=== PATIENT | male | born 1955 | race Caucasian/White ===

== ENCOUNTER → 2019-08-08 | Outpatient (CLI) | payer OTHER | END | disposition home or self-care (01) | LOC: LABWHC1 10:41 | PROVIDERS: ATTEND Radiology Radiation Oncology | DX: C61 Malignant neoplasm of prostate (principal); Z87.891 Personal history of nicotine dependence | CPT/HCPCS: 36415; 84153 ==

== ENCOUNTER → 2021-11-07 | Outpatient (CLI) | payer MEDICARE ==
[2021-11-07 14:34] LABS: Basophils # (A) 0.05 X 10*3/uL (0.00-0.10); Basophils % (A) 0.8 %; Eosinophils # (A) 0.37 X 10*3/uL (0.04-0.35); Eosinophils % (A) 6.3 %; HCT 48.9 % (39.6-50.0); Immature Grans, Automated 0.7 %; Lymphocytes # (A) 1.42 X 10*3/uL (0.90-5.00); MCHC 30.7 g/dL (32.0-37.0); MCV 94.6 fL (80.0-97.0); Mean Platelet Volume 9.3 fL (9.5-12.2); Monocytes # (A) 0.94 X 10*3/uL (0.20-1.00); Monocytes % (A) 15.9 %; NRBC Per 100 WBC 0 /100 WBCS (0.0-0.0); Neutrophils # (A) 3.09 X 10*3/uL (1.80-7.70); Neutrophils % (A) 52.3 %; Platelet Count 241 X 10*3/uL (140-440); RBC 5.17 X 10*6/uL (4.40-5.60); RDW 12.8 % (11.5-14.5); WBC 5.91 X 10*3/uL (4.50-10.00)
[2021-11-07 14:45] LABS: African American GFR (CKD) 75.4 (60.0-200.0); Anion Gap 11.6 mmol/L (10.00-18.00); BUN/Creat Ratio 18.03 Ratio (12.00-20.00); Blood Urea Nitrogen 21.1 mg/dL (9.0-27.0); Calcium 10.2 mg/dL (8.7-10.3); Carbon Dioxide 26.7 mmol/L (20.0-27.5)
== END | disposition home or self-care (01) ==
LOC: LABPAT 09:18
PROVIDERS: ATTEND Urology
DX: Z01.812 Encounter for preprocedural laboratory examination (principal); C61 Malignant neoplasm of prostate
CPT/HCPCS: 36415; 80048; 85025

== ENCOUNTER 2021-11-14 08:06 | Day surgery (SDC) | payer MEDICARE ==
--- NOTE | 2021-11-08 14:48 | P.HPIHPCON ---
History of Present Illness H&P Date: 11/08/21 Chief Complaint: Prostate cancer This is a 66-year-old male with history of Sparkman 7(3+4) prostate cancer, he elected to proceed with radiation. Option of SpaceOR placement was discussed with him. Discussed with him the rationale of doing a SpaceOR, and the risk of benefit of doing the procedure, risk of bleeding infection rectal perforation were discussed. He understood all the risk and agreed to proceed prostate size 48.4 grams Consent for Procedure: I have explained the operation/procedure to the patient, including the risks, benefits, side effects, alternative therapies (including not receiving the proposed treatment or service), the likelihood of the patient achieving his/her goals, and potential recuperation problems for the procedure/sedation/analgesia, as well as any blood products, if indicated. I also explained to the patient the risks, benefits and side effects of the alternatives, as well as the risks related to not receiving the proposed procedure, care, treatment, or services. Surgical - Exam - General no distress, no pain - Respiratory normal expansion, normal respiratory effort - Abdomen Abdomen: soft, non tender Assessment and Plan Assessment: OR for SpaceOR placement
[2021-11-11 14:12] VITALS: BMI 26.4
[~2021-11-14 08:06] MED LIST: CLINDAMYCIN 600 MG in DEXTROSE 5% IN WATER 50 ML IVPB PRN; LIDOCAINE 1% (10MG/ML) FOR IV START INTRADERMA PRN; ONDANSETRON 4 MG/2 ML VIAL IVP PRN; fentaNYL (PF) 50 MCG/ML 2 ML AMP IV PRN
[2021-11-14 08:40] VITALS: TEMP 97.1
[2021-11-14] MEDS: LACTATED RINGERS 1,000 ML IV SCH ×2 (08:45→08:50)
[2021-11-14] MEDS ORDERED: DEXAMETHASONE SOD PHOSPHATE 4 MG/ML 1 ML VIAL IV ONE (08:55)
[2021-11-14] MEDS ORDERED: PROPOFOL 10 MG/ML 20 ML VIAL IV ONE (09:05)
[2021-11-14] MEDS ORDERED: MIDAZOLAM 2 MG/2 ML VIAL ONE (09:05)
[2021-11-14] MEDS ORDERED: KETAMINE 10 MG/ML 20 ML VIAL ONE (09:05)
[2021-11-14] MEDS: GENTAMICIN 120 MG in SODIUM CHLORIDE 0.9% 100 ML IVPB PRN ×2 (09:11→09:20)
[2021-11-14] MEDS ORDERED: LIDOCAINE 2% INJ 20 MG/ML SQ ONE ×2 (09:18→09:29)
--- NOTE | 2021-11-14 09:39 | P.OP ---
Date of Procedure: 11/14/21 Preoperative Diagnosis: Prostate cancer Postoperative Diagnosis: Same Procedure(s) Performed: Transrectal ultrasound, and SpaceOR placement Implants: SpaceOR gel placement Anesthesia: RIOSA Surgeon: Kyle Islas Estimated Blood Loss (ml): 1 Pathology: none sent Condition: stable Disposition: PACU Indications for Procedure: This is a 66-year-old male with history of Aure 7(3+4) prostate cancer, he elected to proceed with radiation. Option of SpaceOR placement was discussed with him. Discussed with him the rationale of doing a SpaceOR, and the risk of benefit of doing the procedure, risk of bleeding infection rectal perforation were discussed. He understood all the risk and agreed to proceed Description of Procedure: he patient was taken to the operating room and placed in the dorsolithotomy position, with his legs supported in Fred stirrups. The external genitalia was prepped and draped sterilely. The transrectal ultrasound probe was placed intrarectally. The prostate was imaged. The probe was then placed within the stabilizing stand. A spinal needle was advanced under ultrasonic guidance to the level of the urogenital diaphragm, and lidocaine was used to infiltrate the tissues as the needle was withdrawn. . Next, the SpaceOAR needle was passed through the midline of the perineum, 1-2 cm anterior to the anal opening. The needle was slowly advanced under ultrasonic guidance until the needle tip was located within the fat plane between the prostate and rectum, at the level of the mid prostate gland. The needle was confirmed to be midline on the axial imaging. A small amount of normal saline was injected for hydrodissection. Next, the SpaceOAR components were mixed and loaded into the Y connector per protocol. The Y connector was then connected to the needle, and the components were injected slowly over a course of approximately 12 seconds. A total of 10 ml was injected. Significant distance was created between the prostate and rectum, as desired. It should be noted t hat at no point was there any concern of rectal perforation. The needle was withdrawn, as well as the transrectal ultrasound probe, and the procedure was terminated. The patient tolerated the procedure well and was taken to the recovery room in stable condition
[2021-11-14 10:03] VITALS: BP 120/76; PULSE 72; RESP 16
== END 2021-11-14 10:36 | disposition home or self-care (01) ==
LOC: OR 08:06
PROVIDERS: ATTEND Urology
DX: C61 Malignant neoplasm of prostate (principal); J44.9 Chronic obstructive pulmonary disease, unspecified; Z87.891 Personal history of nicotine dependence; Z88.0 Allergy status to penicillin; Z87.442 Personal history of urinary calculi; Z79.51 Long term (current) use of inhaled steroids; Z80.3 Family history of malignant neoplasm of breast; Z82.49 Family history of ischemic heart disease and other diseases of the circulatory system
CPT/HCPCS: 55874; C1889; J2001; J2250; J1100; J2405; J1580; J2704

== ENCOUNTER → 2021-11-18 | Outpatient (CLI) | payer MEDICARE | END | disposition home or self-care (01) | LOC: LABWHC1 09:44 | PROVIDERS: ATTEND Radiology Radiation Oncology | DX: C61 Malignant neoplasm of prostate (principal); R97.20 Elevated prostate specific antigen [PSA]; Z87.891 Personal history of nicotine dependence | CPT/HCPCS: 36415; 84153 ==

== ENCOUNTER → 2022-02-28 | Outpatient (CLI) | payer MEDICARE, OTHER ==
--- NOTE | 2022-02-28 09:27 | CT ---
EXAMINATION TYPE: CT chest wo con DATE OF EXAM: 02/28/2022 COMPARISON: None HISTORY: 67-year-old male S20.211A, Contusion front wall of thorax TECHNIQUE: Contiguous axial scanning of the chest without IV contrast. Coronal and sagittal reconstru ctions performed. CT DLP: 319.50 mGycm Automated exposure control for dose reduction was used. FINDINGS: Heart normal size without pericardial effusion. Ascending aorta is ectatic at 3.8 cm. Scattered mild atherosclerotic aortic calcifications are presen t. Conventional arch vessel branching anatomy. Prominent but nonenlarged 8 mm short axis AP window lymph node. No thoracic lymphadenopathy by CT siz e criteria. Large caliber to the main right and left pulmonary arteries measuring up to 3.2 cm suggesting underly ing pulmonary hypertension. Lungs show diffuse fibrotic changes especially in the upper to mid lungs with a reticular opacity, ar eas of architectural distortion, bronchiolectasis, subpleural microcystic change, and groundglass are as. Some groundglass and microcystic change is present in the lower lungs as well. Scattered focal areas of density suggesting is severe left lower lobe subpleural axial image 35 measu ring 1 cm can be reassessed at follow-up to exclude underlying nodules. 1.3 cm subpleural nodularity posterior left midlung, axial image 20. There is concomitant emphysematous change with a 6.9 cm bulla posterior left upper lung. There appears to be severe right-sided hydronephrosis and the partially visualized upper abdomen. Fur ther clinical correlation is recommended. Bones: [facility] within the lower thoracic spine. IMPRESSION: 1. COMBINATION OF MODERATE TO HEAVY FIBROSIS AND CONCOMITANT COPD. PULMONARY ARTERIAL HYPERTENSION. 2. THE FIBROTIC CHANGES ARE CHARACTERIZED BY MICROCYSTIC CHANGE, INTERSTITIAL FIBROSIS, BRONCHIOLECTA SIS, AND AREAS OF GROUNDGLASS WITH SOME CHANGES IN THE LOWER LUNGS BUT AN UPPER TO MID LUNG PREDOMINA NCE. CONSIDER CHRONIC HYPERSENSITIVITY PNEUMONITIS, SARCOIDOSIS, AND FIBROTIC NSIP. PULMONARY MEDICIN E REFERRAL IF NO ESTABLISHED OR DIAGNOSIS. 3. A COUPLE FOCAL NODULAR AREAS MEASURING UP TO 1.3 CM CAN BE REASSESSED AT A 6 MONTH FOLLOW-UP. 4. SEVERE RIGHT-SIDED HYDRONEPHROSIS PARTIALLY SEEN INCIDENTALLY. FURTHER CLINICAL EVALUATION ADVISED .
== END | disposition home or self-care (01) ==
LOC: RADCTMAIN 06:09
PROVIDERS: ATTEND Family Medicine
DX: S20.211A Contusion of right front wall of thorax, initial encounter (principal); J44.9 Chronic obstructive pulmonary disease, unspecified; I27.21 Secondary pulmonary arterial hypertension; R91.8 Other nonspecific abnormal finding of lung field; N13.30 Unspecified hydronephrosis; D86.9 Sarcoidosis, unspecified
CPT/HCPCS: 71250

== ENCOUNTER → 2022-04-02 | Outpatient (CLI) | payer MEDICARE, OTHER | END | disposition home or self-care (01) | LOC: LABWHC1 10:43 | PROVIDERS: ATTEND Radiology Radiation Oncology | DX: Z53.9 Procedure and treatment not carried out, unspecified reason (principal) ==

== ENCOUNTER → 2022-06-30 | Outpatient (CLI) | payer MEDICARE, OTHER | END | disposition home or self-care (01) | LOC: LABWHC1 09:14 | PROVIDERS: ATTEND Radiology Radiation Oncology | DX: Z00.6 Encounter for examination for normal comparison and control in clinical research program (principal); C61 Malignant neoplasm of prostate; R97.20 Elevated prostate specific antigen [PSA]; Z87.891 Personal history of nicotine dependence | CPT/HCPCS: 36415; 84153 ==

== ENCOUNTER → 2022-12-25 | Outpatient (CLI) | payer MEDICARE, OTHER | END | disposition home or self-care (01) | LOC: LABWHC1 08:20 | PROVIDERS: ATTEND Radiology Radiation Oncology | DX: Z00.6 Encounter for examination for normal comparison and control in clinical research program (principal); C61 Malignant neoplasm of prostate; R97.20 Elevated prostate specific antigen [PSA]; Z87.891 Personal history of nicotine dependence | CPT/HCPCS: 36415; 84153 ==

== ENCOUNTER → 2023-06-26 | Outpatient (CLI) | payer MEDICARE, OTHER | END | disposition home or self-care (01) | LOC: LABWHC1 08:22 | PROVIDERS: ATTEND Radiology Radiation Oncology | DX: C61 Malignant neoplasm of prostate (principal); R97.20 Elevated prostate specific antigen [PSA]; Z87.891 Personal history of nicotine dependence | CPT/HCPCS: 36415; 84153 ==

== ENCOUNTER → 2023-12-25 | Outpatient (CLI) | payer MEDICARE, OTHER | END | disposition home or self-care (01) | LOC: LABWHC1 07:55 | PROVIDERS: ATTEND Radiology Radiation Oncology | DX: C61 Malignant neoplasm of prostate | CPT/HCPCS: 36415; 84153 ==